=== PATIENT | female | born 1965 | race Caucasian/White ===

== ENCOUNTER 2018-09-15 16:33 | Emergency (ER) | payer OTHER ==
[~2018-09-15] VITALS: Ht 157.5 cm; Wt 90.7 kg
[2018-09-15 16:48] VITALS: BP 147/72
--- NOTE | 2018-09-15 16:50 | NUR ---
PT TRIAGED AND AMBULATED TO LOBBY. VSS.
--- NOTE | 2018-09-15 19:17 | NUR ---
PT AMBULATED TO ED BED 01.
--- NOTE | 2018-09-15 19:30 | NUR ---
PT 53F. CC COLD HACKING COUGH X3 DAYS. USES LOZENGES AND ROBITUSSIN FOR RELIEF. LUNG SOUNDS CLEAR. NO SIGNS OF ACUTE DISTRESS. DENIES PAIN. BED IN LOWEST POSITION. FAMILY AT BEDSIDE WILL CONTINUE TO MONITOR.
[2018-09-15] MEDS ORDERED: KETOROLAC 60 MG/2 ML VIAL IM ONE ×2 (19:35→21:01)
[2018-09-15 22:20] VITALS: BP 147/72
--- NOTE | 2018-09-15 22:20 | NUR ---
Patient discharged with v/s stable. Written and verbal after care instructions given and explained. Patient alert, oriented and verbalized understanding of instructions. Ambulatory with steady gait. All questions addressed prior to discharge. ID band removed. Patient advised to follow up with PMD. Rx AZITHROMYCIN, PREDNISONE, ALBUTEROL AND DIMETAPP given. Patient educated on indication of medication including possible reaction and side effects. Opportunity to ask questions provided and answered.
== END 2018-09-15 22:10 | disposition home or self-care (01) ==
LOC: MED 16:33
DX: J06.9 Acute upper respiratory infection, unspecified (principal); J98.01 Acute bronchospasm; R19.7 Diarrhea, unspecified
CPT/HCPCS: 87804; 96372; 99283; J1885